=== PATIENT | female | born 1940 | race Caucasian/White ===

== ENCOUNTER 2016-09-14 09:35 | Day surgery (SDC) | payer OTHER ==
--- NOTE | ~2016-09-14 | EGD ---
EGD REPORT [facility] [address] [place]. [address] NAME: TARSHA HAQUE : [birth year] STATUS : REG [facility]#: [id number] AGE: 76 ADM/REG DATE : 09/14/16 MR#: [id number] REPORT SERV DATE: 09/14/16 DICTATED BY: JENNIFER YAN DATE: 09/14/16 REPORT STATUS : Draft [facility] DATE: 09/14/16 [facility] Patient Name: Tarsha Haque Date of : 1940 Attending MD: JENNIFER YAN MD Procedure Date No Time: 09/14/2016 Procedure: Colonoscopy Indications: Abdominal pain, Hematochezia, Constipation, Last colonoscopy: October 2013 Referring MD: Hugh Taylor Medicines: See the Anesthesia note for documentation of the administered medications Complications: No immediate complications. Procedure: Pre-Anesthesia Assessment: - ASA Grade Assessment: III - A patient with severe systemic disease. After I obtained informed consent, the scope was passed under direct vision. Throughout the procedure, the patient's blood pressure, pulse, and oxygen saturations were monitored continuously. The PCF [id number] was introduced through the anus and advanced to the cecum, identified by appendiceal orifice and ileocecal valve. The colonoscopy was performed without difficulty. The patient tolerated the procedure well. The quality of the bowel preparation was adequate. Findings: The perianal and digital rectal examinations were normal. Diverticula were found in the sigmoid colon and in the ascending colon. Internal hemorrhoids were found during retroflexion and were small. A sessile polyp was found in the ascending colon. The polyp was small in size. The polyp was removed with a cold biopsy forceps. Resection and retrieval were complete. Impression: - Diverticulosis in the sigmoid colon and in the ascending colon. - Internal hemorrhoids. - One small polyp in the ascending colon. Resected and retrieved. Recommendation: - Patient has a contact number available for emergencies. The signs and symptoms of potential delayed complications were discussed with the patient. Return to normal activities tomorrow. Written discharge instructions were provided to the patient. EGD REPORT [address] [place]. [address] NAME: TARSHA HAQUE : [birth year] STATUS : REG [facility] PAT#: [id number] AGE: 76 ADM/REG DATE : 09/14/16 MR#: [id number] REPORT SERV DATE: 09/14/16 DICTATED BY: JENNIFER YAN DATE: 09/14/16 REPORT STATUS : Draft TRANSCRIBED BY: NPM DATE: 09/14/16 - Regular diet. - Continue present medications. - Repeat colonoscopy is not recommended for screening purposes. - Suggest you use [employer] - FOR YOUR BIOPSY RESULTS: Please go to [email or web address] and register to receive your results via the portal. Your biopsy results will be posted there in about 7 to 10 days. IF you do not see result in 10 days, call office. Procedure Code(s): --- Professional --- 77783, Colonoscopy, flexible, proximal to splenic flexure; with biopsy, single or multiple Diagnosis Code(s): --- Professional --- K64.8, Other hemorrhoids K57.30, Diverticulosis of large intestine without perforation or abscess without bleeding D12.2, Benign neoplasm of ascending colon R10.9, Unspecified abdominal pain K92.1, Melena K59.00, Constipation, unspecified CPT copyright 2013 [employer]. All rights reserved. The codes documented in this report are preliminary and upon garment examiner review may be revised to meet current compliance requirements. Jennifer Yan MD JENNIFER YAN MD 09/14/2016 11:40 AM This report has been signed electronically. Number of Addenda: 0 Note Initiated On: 09/14/2016 11:13 AM Scope Withdrawal Time 0 hours 7 minutes 23 seconds [address] [id number]
[~2016-09-14 09:35] MED LIST: ALBUTEROL5 INH; ASAB PO; ASABAYER PO; BENTYL10; BENTYL10 PO; BLOOD PRESSURE MED; BONIVA150 MG PO; COREG3 PO; DIOV160 PO; DIOV80 PO; DOK100 MG PO; DSS PO; DUONEB INH; ELIQUIS 5 MG TAB5 MG PO; FLORASTOR250 MG; ISOSORB DIN30 MG PO; K-PHOS 500 MG500 MG OR; KDUR10 PO; KLOR-CON20 MEQ PO; LEVOTHYROXIN75 MCG PO; LEVSINTAB SL; LOTE20 PO; LOTENSIN HCT1 TA2 PO; MAGOX4 PO; MULTIPLE VIT PO; NORV5 PO; OS500+D PO; PCET PO; PEP20 PO; PILOCARPINE5 MG OR; PLAVIX PO; PROTONIX PO; PROVHFA INH; REM15 PO; SPIRO25 PO; ZOCOR40 PO; ZOFRAN ODT4 MG PO; ZOFRAN4 PO; [UNRECOGNIZED DRUG - MIXTURE]
[2017-01-06] MEDS ORDERED: FLEX PO (09:54)
[2017-01-06] MEDS ORDERED: PROTONIX PO (09:55)
[2017-01-06] MEDS ORDERED: BACLOFEN20 MG PO (09:56)
[2017-01-30] MEDS ORDERED: ELIQUIS 5 MG TAB5 MG PEG (23:07)
[2017-01-30] MEDS ORDERED: MULTIVITAMI1 PEG (23:09)
[2017-01-30] MEDS ORDERED: D.O.S.100 MG PEG (23:09)
[2017-01-30] MEDS ORDERED: PROTONI1 PEG (23:10)
[2017-01-30] MEDS ORDERED: SPIRO25 PEG (23:11)
[2017-01-30] MEDS ORDERED: SYN075 PEG (23:12)
[2017-01-30] MEDS ORDERED: BACLOFEN20 MG PEG (23:12)
[2017-01-30] MEDS ORDERED: ZOCOR40 PEG (23:13)
[2017-01-30] MEDS ORDERED: REM15 PEG (23:15)
[2017-01-30] MEDS ORDERED: ACETUDL PEG (23:16)
[2017-01-30] MEDS ORDERED: ZOFRANODT8 PO (23:17)
[2017-01-30] MEDS ORDERED: PROVHFA INH (23:17)
[2017-01-30] MEDS ORDERED: FLEX PEG (23:18)
[2017-01-30] MEDS ORDERED: DUONEB INH (23:19)
== END 2016-09-14 23:59 | disposition home or self-care (01) ==
LOC: DMU 09:35
PROVIDERS: Internal Medicine Gastroenterology
PROC: 0DBK8ZZ Excision of Ascending Colon, Via Natural or Artificial Opening Endoscopic (ICD-10-PCS; principal; 2016-09-14 11:30)
DX: D12.2 Benign neoplasm of ascending colon (principal); K64.8 Other hemorrhoids; K57.30 Diverticulosis of large intestine without perforation or abscess without bleeding; R10.9 Unspecified abdominal pain; K92.1 Melena; K59.00 Constipation, unspecified; I10 Essential (primary) hypertension; I63.9 Cerebral infarction, unspecified; E78.5 Hyperlipidemia, unspecified; Z85.818 Personal history of malignant neoplasm of other sites of lip, oral cavity, and pharynx; Z79.899 Other long term (current) drug therapy; Z88.5 Allergy status to narcotic agent; Z88.1 Allergy status to other antibiotic agents; Z88.8 Allergy status to other drugs, medicaments and biological substances
CPT/HCPCS: 88305

== ENCOUNTER 2016-09-15 13:11 | Emergency (ER) | payer OTHER ==
[2016-09-15 11:09] LABS: BASOPHILS 0.2 %; BASOPHILS ABSOLUTE 0.01 10/3/uL (0.0-0.16); EOSINOPHILS 5.6 %; EOSINOPHILS ABSOLUTE 0.34 10/3/uL (0.0-0.53); HEMATOCRIT 38.4 % (36.0-48.0); HEMOGLOBIN 12.6 g/dL (12.0-16.0); IMMATURE GRANULOCYTES 0.2 %; IMMATURE GRANULOCYTES ABSOLUTE 0.01 10/3/uL (0.0-0.11); LYMPHOCYTES 24.1 %; LYMPHOCYTES ABSOLUTE 1.47 10/3/uL (0.67-4.30); MANUAL DIFF NO %; MEAN CORPUS HGB CONC 32.8 g/dL (32.0-36.0); MEAN CORPUSCULAR HEMOGLOB 27.7 pg (26.0-34.0); MEAN CORPUSCULAR VOLUME 84.4 fL (80-100); MEAN PLATELET VOLUME 8.7 fL (9.2-13.0); MONOCYTES 8.7 %; MONOCYTES ABSOLUTE 0.53 10/3/uL (0.21-1.20); NEUTROPHILS 61.2 %; NEUTROPHILS ABSOLUTE 3.73 10/3/uL (2.02-8.40); PLATELET COUNT 277 10/3/uL (150-400); RBC DISTRIBUTION WIDTH 15.5 % (12.0-16.0); RED CELL COUNT 4.55 10/6/uL (4.0-5.6); WHITE BLOOD CELLS 6.1 10/3/uL (4.5-10.5)
[2016-09-15 11:23] LABS: BUN (BLOOD UREA NITROGEN) 11 MG/DL (6-23); CALCIUM, SERUM 8.4 MG/DL (8.5-10.4); CHLORIDE, SERUM 102 MMOL/L (96-112); CO2 (CARBON DIOXIDE) 25 MMOL/L (24-34); CREATININE 0.62 MG/DL (0.55-1.02); GFR AFRICAN AMERICAN 101 ML/MIN (>=60); GFR NON AFRICAN AMERICAN 87 ML/MIN (>=60); GLUCOSE, SERUM 86 MG/DL (60-99); POTASSIUM, SERUM 3.7 MMOL/L (3.5-5.3); SODIUM, SERUM 136 MMOL/L (135-148)
[2016-09-15 11:53] LABS: SED RATE 18 MM/HR (0-20)
[2016-09-15 13:48] LABS: BD FL LYMPH (NOT ORD) 9 %; BD FL SOURCE (NOT ORD) Left Knee; BF BASO (NOT OF) 0 %; BF LARGE MONONUCLEAR 78 %; BF TOTAL CELL CT (NOT ORD 120 /MM3; BODY FLUID EOS (NOT ORD) 0 %; BODY FLUID RBC (NOT ORD) 1000 /MM3; BODY FLUID SEG (NOT ORD) 13 %
[2016-09-15 14:01] LABS: GLUCOSE BODY FL (NOT ORD) 13 MG/DL; PROTEIN BODY FLUID 3.5 G/DL; URIC ACID BF (NOT ORDER) 6.9 MG/DL
[2017-01-06] MEDS ORDERED: FLEX PO (09:54)
[2017-01-06] MEDS ORDERED: PROTONIX PO (09:55)
[2017-01-06] MEDS ORDERED: BACLOFEN20 MG PO (09:56)
[2017-01-30] MEDS ORDERED: ELIQUIS 5 MG TAB5 MG PEG (23:07)
[2017-01-30] MEDS ORDERED: MULTIVITAMI1 PEG (23:09)
[2017-01-30] MEDS ORDERED: D.O.S.100 MG PEG (23:09)
[2017-01-30] MEDS ORDERED: PROTONI1 PEG (23:10)
[2017-01-30] MEDS ORDERED: SPIRO25 PEG (23:11)
[2017-01-30] MEDS ORDERED: SYN075 PEG (23:12)
[2017-01-30] MEDS ORDERED: BACLOFEN20 MG PEG (23:12)
[2017-01-30] MEDS ORDERED: ZOCOR40 PEG (23:13)
[2017-01-30] MEDS ORDERED: REM15 PEG (23:15)
[2017-01-30] MEDS ORDERED: ACETUDL PEG (23:16)
[2017-01-30] MEDS ORDERED: ZOFRANODT8 PO (23:17)
[2017-01-30] MEDS ORDERED: PROVHFA INH (23:17)
[2017-01-30] MEDS ORDERED: FLEX PEG (23:18)
[2017-01-30] MEDS ORDERED: DUONEB INH (23:19)
== END 2016-09-15 14:30 | disposition home or self-care (01) ==
LOC: ER 13:11
PROVIDERS: Emergency Medicine; Physician Assistant
PROC: 0S9D3ZZ Drainage of Left Knee Joint, Percutaneous Approach (ICD-10-PCS; principal; 2016-09-15)
DX: M25.462 Effusion, left knee (principal); I10 Essential (primary) hypertension; K21.9 Gastro-esophageal reflux disease without esophagitis; E78.5 Hyperlipidemia, unspecified; D64.9 Anemia, unspecified; Z86.73 Personal history of transient ischemic attack (TIA), and cerebral infarction without residual deficits; Z95.5 Presence of coronary angioplasty implant and graft; Z87.891 Personal history of nicotine dependence; Z88.8 Allergy status to other drugs, medicaments and biological substances; Z88.5 Allergy status to narcotic agent; Z79.899 Other long term (current) drug therapy
CPT/HCPCS: 80048; 82945; 84157; 84560; 85025; 85652; 87070; 87205; 89051; 89060; 99283